=== PATIENT | female | born 1985 | race Caucasian/White ===

== ENCOUNTER → 2018-03-30 | Outpatient (CLI) | payer OTHER ==
[~2018-03-30] MED LIST: ASPIR-LOW81 MG PO; ASPIRIN 81M81 MG/TA2 PO; ASPIRIN E.C. 8181 MG PO; DHA; LOVENOX 3030 MG/0.3 SQ; MOTRIN 600600 MG/TAB PO; NORCO 325 MG-7.1 TAB PO; PRENATAL VITAMI1 TA5 PO; PRENATAL1 TA1 PO; SENOKOT S 50 MG1 TAB PO
== END ==
LOC: COL.RAD 09:56
DX: S73.191A Other sprain of right hip, initial encounter (principal)
CPT/HCPCS: A9585; J3301; Q9967

== ENCOUNTER 2020-12-27 17:51 | Emergency (ER) | payer OTHER ==
[~2020-12-27] VITALS: Ht 167.6 cm; Wt 77.3 kg
[2020-12-27 18:08] VITALS: TEMP 98.8
[2020-12-27 19:07] LABS: BASO % 0.5 % (0.0-2.0); EOS % 0.4 % (0-4.0); GRAN # 5.6 (1.4-6.5); GRAN % 72.9 % (42.2-75.2); HEMATOCRIT 37.5 % (37.0-47.0); HEMOGLOBIN 12.7 g/dl (12.5-16.0); LYMPH # 1.4 (1.2-3.4); LYMPH % 18.6 % (20.0-51.0); MEAN CELL VOLUME 87 fl (80.0-100.0); MEAN CORPUSCULAR HEMOGLOBIN 30 pg (27.0-31.0); MEAN CORPUSCULAR HGB CONC 34 g/dl (33.0-37.0); MEAN PLATELET VOLUME 9.2 fl (7.4-10.4); MONO # 0.6 (0.1-0.6); MONO % 7.5 % (1.7-9.3); PLATELET COUNT 290 K/mm3 (130-400); RED BLOOD COUNT 4.29 M/mm3 (4.10-5.30); REDCELL DISTRIBUTION WIDTH-CV 12.6 % (11.5-14.5)
[2020-12-27 19:19] LABS: PROTHROMBIN TIME 10.8 SECONDS (9.7-12.8)
[2020-12-27 19:33] LABS: D-DIMER > 5250.00 ng/mLDDu (200-230)
[2020-12-27 21:05] VITALS: BP 114/80; PULSE 86
== END 2020-12-27 21:05 | disposition home or self-care (01) ==
LOC: COL.ER 17:51
PROVIDERS: Nurse Practitioner
DX: M79.662 Pain in left lower leg (principal); Z86.718 Personal history of other venous thrombosis and embolism; Z88.6 Allergy status to analgesic agent; Z88.5 Allergy status to narcotic agent
CPT/HCPCS: J1650

== ENCOUNTER → 2020-12-28 | Outpatient (CLI) | payer OTHER | LOC: COL.VAS 07:58 | DX: M79.662 Pain in left lower leg (principal) ==